=== PATIENT | female | born 1935 | race African-American/Black ===

== ENCOUNTER 2017-07-14 11:05 | Emergency (ER) | payer MEDICARE, MEDICAID ==
[2017-07-14] VITALS (11 sets, daily range): BP systolic 117–148; BP diastolic 54–80
[~2017-07-14] VITALS: Ht 162.6 cm; Wt 63.5 kg
[~2017-07-14 11:05] MED LIST: Oxymetazoline 0.05% Na Spray 30ml NASAL ONE
[2017-07-14] MEDS ORDERED: Lidocaine 1% MPF 10mg/ml 5ml INJ ONE (11:15)
[2017-07-14] MEDS ORDERED: Acetaminophen 500mg (ES) tab ORAL ONE (11:15)
--- NOTE | 2017-07-14 12:00 | Diagnostic Imaging Report ---
Indications: Head pain, status post fall Technique: Spiral acquisitions obtained through the brain. Angled axial and coronal 5 x 5 mm slices were reconstructed. Total dose length product 1393 mGycm. CTDI vol(s) 70 mGy. Dose reduction achieved using automated exposure control Comparison: None. Findings: No acute intracranial hemorrhage or edema. No mass effect or midline shift. Normal light-white differentiation. There is slight frontal orbital volume loss and cerebellar volume loss. Normal for age ventricles. There is a complex left facial fracture, incompletely visualized. Impression: Age-related volume loss Negative for acute intracranial bleed or mass effect Complex left facial fracture, incompletely visualized The CT scanner at [facility] is accredited by the [employer] and the scans are performed using protocols designed to limit radiation exposure to as low as reasonably achievable to attain images of sufficient resolution adequate for diagnostic evaluation.
--- NOTE | 2017-07-14 12:04 | Diagnostic Imaging Report ---
Indication: Reason For Exam: PAIN Technique: Spiral acquisitions obtained through the cervical spine. No IV contrast utilized. Multiplanar reconstructions were generated. Total dose length product 215.25 mGycm. CTDIvol(s) 11.41 mGy. Dose reduction achieved using automated exposure control. Comparison: none Findings: There is is a left sided facial fracture which is incompletely visualized. There is normal bony alignment. No evidence of acute cervical fracture. No dislocations. Vertebral body heights are preserved. There is narrowing of the left neural foramen at C3-4. No significant disc bulge or protrusion or disc space narrowing. There is mild narrowing of the bilateral neural foramina at C4-5. No significant disc bulge or protrusion or spinal stenosis. At C5-6, there is marked degenerative disc narrowing. Posterior osteophytes result in borderline narrowing of the spinal canal. There is [id number] right, moderate to severe left neural foraminal stenosis. At C6-7, there is mild bilateral neural foraminal stenosis. The remaining disc levels, no significant disc bulge or protrusion, spinal stenosis, or neural foraminal narrowing. The included extraspinal soft tissues are unremarkable. Impression: No evidence of acute cervical spine trauma Complex left facial fracture. Please refer to separate facial CT report Degenerative changes, as detailed above The CT scanner at [facility] is accredited by the [employer] and the scans are performed using protocols designed to limit radiation exposure to as low as reasonably achievable to attain images of sufficient resolution adequate for diagnostic evaluation.
[2017-07-14 12:14] LABS: BASOPHILS % (AUTO) 0.5 % (0.0-2.0); EOSINOPHILS % (AUTO) 0.7 % (0.0-3.0); HEMATOCRIT 40.3 % (37.0-47.0); HEMOGLOBIN 14.2 G/DL (12.0-16.0); LYMPHOCYTES % (AUTO) 21.3 % (20.0-45.0); MEAN CORPUSCULAR VOLUME 90 FL (80-99); MONOCYTES % (AUTO) 7.1 % (1.0-10.0); NEUTROPHILS % (AUTO) 70.3 % (45.0-75.0); PLATELET COUNT 227 K/UL (150-450); RED CELL DISTRIBUTION WIDTH 11.1 % (11.6-14.8)
--- NOTE | 2017-07-14 12:16 | Diagnostic Imaging Report ---
Indications: Pain, status post fall Technique: Spiral images obtained through the facial bones. No IV contrast utilized. Multiplanar reconstructions were generated.Total dose length product 543 mGycm. CTDIvol(s) va mGy. Dose reduction achieved using automated exposure control Comparison: none Findings: There is a complex left orbital fracture. The fracture involves the orbital floor, into which herniates a small amount of orbital fat but no muscle. The orbital floor fracture is depressed by about 3 mm. Fracture line extends into the lateral orbital wall, which is slightly buckled. Fracture line extends into the malar eminence and anterior aspect of the zygomatic arch. This is nondisplaced. Posteriorly, the fracture extends into the posterolateral maxillary sinus wall. There is a maxillary sinus air-fluid level. There is equivocal the minimal fracture deformity of the medial orbital wall as well. Gas is seen within the soft tissues, consistent with the maxillary sinus involvement. There is minimal malar region and left periorbital soft tissue swelling. The optic globe is intact. There is some infiltration of the retrobulbar orbital fat, which could indicate contusion. There is some left ethmoid sinus opacification. The nasal bone is intact. There is a right maxillary sinus air-fluid level but no evidence of acute fracture. There is an old fracture deformity of the right zygomatic arch. The nasal septum is midline. The mandible is intact. Considerable lucency surrounds the apical roots of the left first maxillary premolar. There is evidence of dental caries involving the second left maxillary premolar. There is evidence of multiple prior maxillary tooth extractions. Impression: Complex left orbital fracture, as detailed above. The orbital floor fracture demonstrates herniation of a small amount of orbital fat but no muscle Dental and periodontal disease, as described above Right maxillary sinus air-fluid level, possibly posttraumatic but given the absence of right maxillary sinus fracture could also represent acute maxillary sinusitis Slight infiltration of the left retrobulbar orbital fat. This could indicate a mild contusion The CT scanner at [facility] is accredited by the [employer] and the scans are performed using protocols designed to limit radiation exposure to as low as reasonably achievable to attain images of sufficient resolution adequate for diagnostic evaluation.
[2017-07-14 12:23] LABS: ANION GAP 11 mmol/L (5-15); BLOOD UREA NITROGEN 15 mg/dL (7-18); CALCIUM 9.4 MG/DL (8.5-10.1); CARBON DIOXIDE 29 MMOL/L (21-32); CHLORIDE 103 MMOL/L (98-107); POTASSIUM 2.9 MMOL/L (3.5-5.1); SODIUM 143 MMOL/L (136-145)
[2017-07-14 12:27] LABS: ALANINE AMINOTRANSFERASE 15 U/L (12-78); ALBUMIN 4.1 G/DL (3.4-5.0); ALBUMIN/GLOBULIN RATIO 1.2 (1.0-2.7); ALKALINE PHOSPHATASE 64 U/L (46-116); ASPARTATE AMINO TRANSFERASE 13 U/L (15-37); BILIRUBIN,TOTAL 0.5 MG/DL (0.2-1.0)
[2017-07-14] MEDS ORDERED: Morphine Sulfate 2mg/ml Inj IVP ONE (12:30)
[2017-07-14] MEDS ORDERED: cholesterol med (12:47)
[2017-07-14] MEDS ORDERED: high blood pressure (12:47)
[2017-07-14] MEDS ORDERED: ceFAZolin 1gm/50ml Premix 50 ML IV ONE (13:30)
[2017-07-14] MEDS ORDERED: Tetanus/Diptheria/Pertussis Vaccine 0.5ml Syr IM ONE (13:30)
[2017-07-14] MEDS ORDERED: Pantoprazole Inj IVP ONE (14:15)
--- NOTE | 2017-07-14 14:28 | Emergency Room Report ---
History of Present Illness General Chief Complaint: Multiple Trauma/Fall Source: Patient Present Illness HPI Patient is an 81-year-old female who presented after a fall. The patient reportedly tripped over uneven pavement. She sustained a laceration to her left hand. She reports having no loss of consciousness. She reports increased pain to her neck as well as her left side of her face. She noted some nasal bleeding. The patient was noted to have tetanus vaccine approximately 8 years ago. Injury occurred just prior to arrival. Allergies: Coded Allergies: No Known Allergies (Unverified , 07/14/17) Patient History Past Medical History: see triage record Reviewed Nursing Documentation: PMH: Agreed; PSxH: Agreed Nursing Documentation-PMH Hx Hypertension: Yes - high cholesterol Review of Systems All Other Systems: negative except mentioned in HPI Physical Exam Vital Signs Date Time Temp Pulse Resp B/P (MAP) Pulse Ox O2 Delivery O2 Flow Rate FiO2 07/14/17 10:53 97.5 69 18 148/76 99 Room Air 97.5 Sp02 EP Interpretation: reviewed, normal General Appearance: normal inspection, alert, no apparent distress, GCS 15 Head: normocephalic, atraumatic Eyes: normal eye exam, PERRL, EOMI, lids + conjunctiva normal, no hyphema, no racoon eyes ENT: normal ENT inspection, TMs + canals normal, oropharynx normal, no young signs Neck: trach midline, no bony tend, full range of motion without pain Respiratory: effort normal, no retractions, clear to auscultation, chest symmetrical, palpation of chest normal, speaking in full sentences Cardiovascular: regular rate, rhythm, no JVD Cardiovascular #2: 2+ radial (R), 2+ radial (L), 2+ dorsalis pedis (R), 2+ dorsalis pedis (L) Gastrointestinal: normal inspection, non-tender, non-distended, no rebound/ guarding, normal bowel sounds Genitourinary: normal inspection Musculoskeletal: normal ROM, non-tender, back normal Skin: no rash, normal palpation, other - soft tissue swelling to left side of face, left hand laceration 2 cm Lymphatic: normal inspection Neurologic: oriented x3, sensory intact, motor strength/tone normal, normal speech Psychiatric: normal inspection, memory normal, mood normal, no suicidal/ homicidal ideation Procedures Laceration/Wound Repair Laceration/Wound Repair : Consent: Emergent Wound Location: upper extremity Wound's Depth, Shape: superficial Wound Length (cm): 2 Wound Explored: clean Irrigated w/ Saline (ccs): 30 Betadine Prep?: Yes Anesthesia: 1% Lidocaine Volume Anesthetic (ccs): 2 Wound Debrided: minimal Wound Repaired With: sutures Suture Size/Type: 5:0, other - chromic gut Number of Sutures: 5 Layer Closure?: No Patient Tolerated: Well Medical Decision Making Diagnostic Impression: Primary Impression: Multiple injuries due to trauma Additional Impressions: Fall Laceration of finger of left hand Facial bone fracture Orbital floor fracture ER Course Patient presented for fall. Differential diagnosis included was not limited to intracranial hemorrhage, laceration, nerve injury, facial fracture, orbital fracture, entrapment. Because of complexity of patient's case laboratory testing and imaging studies were ordered. CT head read by radiology showed atrophic changes without evident acute intracranial hemorrhage. CT of the facial bones showed left-sided orbital floor fracture as well as zygoma fracture. See radiology report for full details. CT of cervical spine read by radiology showed degenerative changes without evident acute fracture or malalignment. The laboratory testing showed evidence of hypokalemia. The patient was discussed with [facility] physician for possible transfer to [facility]. The Tetanus vaccine was updated. Patient was given IV Ancef. Labs Test 07/14/17 11:55 White Blood Count 10.0 K/UL (4.8-10.8) Red Blood Count 4.50 M/UL (4.20-5.40) Hemoglobin 14.2 G/DL (12.0-16.0) Hematocrit 40.3 % (37.0-47.0) Mean Corpuscular Volume 90 FL (80-99) Mean Corpuscular Hemoglobin 31.6 PG (27.0-31.0) Mean Corpuscular Hemoglobin Concent 35.3 G/DL (32.0-36.0) Red Cell Distribution Width 11.1 % (11.6-14.8) Platelet Count 227 K/UL (150-450) Mean Platelet Volume 7.4 FL (6.5-10.1) Neutrophils (%) (Auto) 70.3 % (45.0-75.0) Lymphocytes (%) (Auto) 21.3 % (20.0-45.0) Monocytes (%) (Auto) 7.1 % (1.0-10.0) Eosinophils (%) (Auto) 0.7 % (0.0-3.0) Basophils (%) (Auto) 0.5 % (0.0-2.0) Prothrombin Time 10.0 SEC (9.30-11.50) Prothromb Time International Ratio 1.0 (0.9-1.1) Activated Partial Thromboplast Time 24 SEC (23-33) Sodium Level 143 MMOL/L (136-145) Potassium Level 2.9 MMOL/L (3.5-5.1) Chloride Level 103 MMOL/L (98-107) Carbon Dioxide Level 29 MMOL/L (21-32) Anion Gap 11 mmol/L (5-15) Blood Urea Nitrogen 15 mg/dL (7-18) Creatinine 1.0 MG/DL (0.55-1.30) Estimat Glomerular Filtration Rate mL/min (>60) Glucose Level 170 MG/DL (74-106) Calcium Level 9.4 MG/DL (8.5-10.1) Total Bilirubin 0.5 MG/DL (0.2-1.0) Aspartate Amino Transf (AST/SGOT) 13 U/L (15-37) Alanine Aminotransferase (ALT/SGPT) 15 U/L (12-78) Alkaline Phosphatase 64 U/L (46-116) Total Protein 7.6 G/DL (6.4-8.2) Albumin 4.1 G/DL (3.4-5.0) Globulin 3.5 g/dL Albumin/Globulin Ratio 1.2 (1.0-2.7) Last Vital Signs Date Time Temp Pulse Resp B/P (MAP) Pulse Ox O2 Delivery O2 Flow Rate FiO2 07/14/17 12:29 97.5 07/14/17 11:04 69 18 148/76 99 Room Air Status: unchanged Disposition: XFER SHT-TRM HOSP Condition: Serious Referrals: [facility],REFERR[facility] (PCP) Julio [address] Jul 14, 2017 14:28
--- NOTE | 2017-07-14 15:14 | Diagnostic Imaging Report ---
Indication: Pain, status post fall Technique: 3 views left hand Comparison: none Findings: No acute fractures. No dislocations. There is minimal degenerative joint space narrowing of the first interphalangeal joint, second through fifth distal interphalangeal joints and a slight extent the first carpometacarpal joint The remaining joint spaces are preserved. The bones are somewhat osteoporotic. Impression: No acute bony trauma Mild degenerative changes, as described
[2017-07-14] MEDS ORDERED: LR 1000ml 1,000 ML IV SCH (18:15)
== END 2017-07-14 21:10 | disposition short-term general hospital (02) ==
LOC: EDBD 11:05 → EEVIPCON 11:28 → EMR 11:28
DX: S61.412A Laceration without foreign body of left hand, initial encounter (principal); S02.32XA Fracture of orbital floor, left side, initial encounter for closed fracture; W01.0XXA Fall on same level from slipping, tripping and stumbling without subsequent striking against object, initial encounter; Y92.009 Unspecified place in unspecified non-institutional (private) residence as the place of occurrence of the external cause; Z23 Encounter for immunization; M50.322 Other cervical disc degeneration at C5-C6 level; M48.02 Spinal stenosis, cervical region
CPT/HCPCS: 12001; 36415; 70450; 70486; 72125; 73130; 80053; 82962; 85025; 85610; 85730; 90471; 90715; 96374; 96375; 99285; C9113; J0690; J2270; J2405; J8499